=== PATIENT | female | born 1955 | race Caucasian/White ===

== ENCOUNTER 2018-09-30 16:33 | Inpatient (IN) | payer OTHER ==
[~2018-09-30] VITALS: Ht 167.6 cm; Wt 48.3 kg
[2018-09-30 17:55] LABS: BASOPHILS ABSOLUTE AUTO 0.11 K/mm3 (0.00-0.23); BASOPHILS PERCENT AUTO 1 % (0-2); Hematocrit 42.9 % (33.0-51.0); Hemoglobin 13.9 g/dL (11.5-16.0); LYMPHOCYTES ABSOLUTE AUTO 1.11 K/mm3 (0.84-5.20); LYMPHOCYTES PERCENT AUTO 7 % (21-46); MONOCYTES PERCENT AUTO 9 % (4-13); Mean Corpuscular HGB 31.7 pg (26.0-34.0); Mean Corpuscular HGB Conc 32.4 g/dL (31.5-36.5); Mean Corpuscular Volume 98 fL (80-100); Mean Platelet Volume 10.1 fL (9.1-12.4); Platelet Count 236 K/mm3 (150-400); RDW Coefficient Variation 12.5 % (11.7-14.2); RDW Standard Deviation 44.8 fL (35.1-46.3); Red Blood Cell Count 4.38 M/mm3 (3.80-5.20); White Blood Cell Count 15.32 K/mm3 (4.00-11.30)
[2018-09-30 17:58] LABS: EOSINOPHILS PERCENT AUTO 0 % (0-6); IMMATURE GRAN ABSOLUTE AUTO 0.14 K/mm3 (0.00-0.10); IMMATURE GRAN PERCENT AUTO 1 % (0-1); NEUTROPHILS ABSOLUTE AUTO 12.66 K/mm3 (1.96-9.15); NEUTROPHILS PERCENT AUTO 83 % (41-73)
[2018-09-30 18:05] LABS: Alanine Aminotransfer (ALT/SGP 39 U/L (12-78); Albumin, Blood 3.3 g/dL (3.4-5.0); Albumin/Globulin Ratio 0.8 (0.8-1.8); Alk Phos 93 U/L (50-136); Anion Gap 12 mmol/L (6-16); Aspartate Aminotrans (AST/SGOT 42 U/L (12-37); Bilirubin, Total 1.1 mg/dL (0.1-1.0); Blood Urea Nitrogen 24 mg/dL (8-24); Bun/Creatinine Ratio 34.7 (12.0-20.0); CO2, Blood 22 mmol/L (21-32); Calcium, Blood 8.2 mg/dL (8.5-10.1); Chloride, Blood 97 mmol/L (98-108); Creatinine, Blood 0.69 mg/dL (0.40-1.00); Globulin, Blood 3.9 g/dL (2.2-4.0); Glomerular Filtration Rate >60 (60-); Glucose, Blood 98 mg/dL (70-99); Sodium, Blood 131 mmol/L (136-145); Total Protein, Blood 7.2 g/dL (6.4-8.2)
[2018-09-30 20:14] LABS: Source, Urine Clean Catch
[2018-09-30 20:22] LABS: Appearance, Urine Clear (Clear); Bilirubin, Urine Neg (Neg); Blood, Urine 2+ (Neg); Color, Urine Yellow (P-Yellow); Glucose Qualitative, Urine Neg (Neg); Ketones, Urine 3+ (Neg); Leukocyte Esterase, Urine Neg (Neg); Nitrite, Urine Neg (Neg); Protein, Urine 2+ (Neg); Urobilinogen, Urine NORM (Normal)
[2018-09-30 20:37] LABS: White Blood Cells, Urine Rare /hpf (0-5)
[2018-09-30 20:39] LABS: Amorphous Light (0-Heavy); Bacteria Few /hpf; Red Blood Cells, Urine 0-2 /hpf (0-2); Squamous Epithelial Cells Rare /hpf (Few)
[2018-09-30 21:48] LABS: U Amphetamine Screen Not Detected; U Barbituate Screen Not Detected; U Benzodiazapine Screen Not Detected; U Buprenorphine Screen Not Detected; U Cannabinoids Screen Not Detected; U Cocaine Screen Not Detected; U Methadone Screen Not Detected; U Methamphetamine Screen Not Detected; U Opiates Screen Not Detected; U Oxycodone Screen Not Detected; U Phencyclidine Screen Not Detected; U Propoxyphene Screen Not Detected
[2018-10-01 00:53] LABS: Adenovirus Not Detected (NOT DETECT); Bordetella pertussis Not Detected (NOT DETECT); Chlamydophila pneumoniae Not Detected (NOT DETECT); Coronavirus 229E Not Detected (NOT DETECT); Coronavirus HKU1 Not Detected (NOT DETECT); Coronavirus NL63 Not Detected (NOT DETECT); Coronavirus OC43 Not Detected (NOT DETECT); Human Metapneumovirus Not Detected (NOT DETECT); Human Rhinovirus/Enterovirus Not Detected (NOT DETECT); Influenza A Not Detected (NOT DETECT); Influenza A/2009-H1 Not Detected (NOT DETECT); Influenza A/H1 Not Detected (NOT DETECT); Influenza A/H3 Not Detected (NOT DETECT); Influenza B Not Detected (NOT DETECT); Mycoplasma pneumoniae Not Detected (NOT DETECT); Parainfluenza Virus 1 Not Detected (NOT DETECT); Parainfluenza Virus 2 Not Detected (NOT DETECT); Parainfluenza Virus 3 Not Detected (NOT DETECT); Parainfluenza Virus 4 Not Detected (NOT DETECT); Respiratory Syncytial Virus Not Detected (NOT DETECT)
[2018-10-01 04:52] LABS: Hematocrit 39.6 % (33.0-51.0); Hemoglobin 12.9 g/dL (11.5-16.0); Mean Corpuscular HGB 31.3 pg (26.0-34.0); Mean Corpuscular HGB Conc 32.6 g/dL (31.5-36.5); Mean Corpuscular Volume 96 fL (80-100); Mean Platelet Volume 10.6 fL (9.1-12.4); Platelet Count 229 K/mm3 (150-400); RDW Coefficient Variation 12.8 % (11.7-14.2); RDW Standard Deviation 45.6 fL (35.1-46.3); Red Blood Cell Count 4.12 M/mm3 (3.80-5.20); White Blood Cell Count 12.51 K/mm3 (4.00-11.30)
[2018-10-01 05:18] LABS: BAND PERCENT MAN 36 % (0-8); BASOPHILS PERCENT MAN 0 % (0-2); EOSINOPHILS PERCENT MAN 0 % (0-6); LYMPHOCYTES ABSOLUTE MAN 0.62 K/mm3 (0.84-5.20); LYMPHOCYTES PERCENT MAN 5 % (21-46); METAMYELOCYTE ABSOLUTE MAN 0.25 K/mm3 (0.00-0.00); METAMYELOCYTE PERCENT MAN 2 % (0-0); MONOCYTES PERCENT MAN 8 % (4-13); MYELOCYTE PERCENT MAN 4 % (0-0); NEUTROPHILS ABSOLUTE MAN 10.13 K/mm3 (1.96-9.15); SEG NEUTROPHILS PERCENT MAN 45 % (41-73); TOTAL CELLS COUNTED 100
[2018-10-01 05:20] LABS: Anion Gap 10 mmol/L (6-16); Blood Urea Nitrogen 21 mg/dL (8-24); Bun/Creatinine Ratio 25.8 (12.0-20.0); CO2, Blood 25 mmol/L (21-32); Chloride, Blood 101 mmol/L (98-108); Creatinine, Blood 0.81 mg/dL (0.40-1.00); Glomerular Filtration Rate >60 (60-); Glucose, Blood 113 mg/dL (70-99); Potassium, Blood 3.8 mmol/L (3.5-5.5); Sodium, Blood 136 mmol/L (136-145)
--- NOTE | 2018-10-01 05:25 | NUR ---
SHIFT SUMMARY PT ADMITTED WITH PNEUMONIA. ALERT AND ORIENTED, BUT DROWSY. IVF'S INFUSING AT 75ML/HR. PT RECEIVED TYLENOL IN ER DUE TO FEVER, PT AFEBRILE UPON ARRIVAL TO UNIT. TELEMETRY SHOWS NSR RATE IN THE 80'S. PT HAS MOIST SOUNDING COUGH, LUNG SOUNDS COARSE T/O. OXYGEN ON AT 2L/NC. WILL CONTINUE TO MONITOR.
--- NOTE | 2018-10-01 18:15 | NUR ---
PT AOX4 AND COOPERATIVE OF CARE. PT TREATED FOR COUGH AND PAIN PER EMAR. THIS SEEMS TO BE EFFECTIVE AT THIS TIME. PT KEEPS BED UPRIGHT TO HELP WITH HER SOB. PT PLEASANT AND CALLS APPROPRIATELY. WILL CONTINUE TO MONITOR.
--- NOTE | 2018-10-02 07:10 | NUR ---
coughing led to pain in side, resolved with time and tylenol, call light in reach, infusing NS with no s/sx of infection or infiltration, 2L via nc, a+o cooperative with staff, walking rounds completed with returning day staff
[2018-10-02 08:23] LABS: Hematocrit 37.2 % (33.0-51.0); Hemoglobin 11.9 g/dL (11.5-16.0); Mean Corpuscular HGB 30.7 pg (26.0-34.0); Mean Corpuscular Volume 96 fL (80-100); Mean Platelet Volume 10.5 fL (9.1-12.4); Platelet Count 259 K/mm3 (150-400); RDW Standard Deviation 46.2 fL (35.1-46.3); Red Blood Cell Count 3.87 M/mm3 (3.80-5.20); White Blood Cell Count 14.01 K/mm3 (4.00-11.30)
[2018-10-02 08:47] LABS: Anion Gap 6 mmol/L (6-16); Blood Urea Nitrogen 17 mg/dL (8-24); Bun/Creatinine Ratio 26.9 (12.0-20.0); CO2, Blood 24 mmol/L (21-32); Chloride, Blood 111 mmol/L (98-108); Creatinine, Blood 0.63 mg/dL (0.40-1.00); Glomerular Filtration Rate >60 (60-); Glucose, Blood 93 mg/dL (70-99); Potassium, Blood 3.5 mmol/L (3.5-5.5); Sodium, Blood 141 mmol/L (136-145)
[2018-10-02 08:49] LABS: Vancomycin, Trough 6.9 ug/mL (5.0-10.0)
[2018-10-02 09:39] LABS: BAND PERCENT MAN 1 % (0-8); BASOPHILS ABSOLUTE MAN 0.14 K/mm3 (0.00-0.23); BASOPHILS PERCENT MAN 1 % (0-2); EOSINOPHILS ABSOLUTE MAN 0.14 K/mm3 (0.00-0.68); EOSINOPHILS PERCENT MAN 1 % (0-6); LYMPHOCYTES ABSOLUTE MAN 1.26 K/mm3 (0.84-5.20); LYMPHOCYTES PERCENT MAN 9 % (21-46); MONOCYTES PERCENT MAN 0 % (4-13); NEUTROPHILS ABSOLUTE MAN 12.46 K/mm3 (1.96-9.15); SEG NEUTROPHILS PERCENT MAN 88 % (41-73); TOTAL CELLS COUNTED 100
--- NOTE | 2018-10-02 17:34 | NUR ---
PT AOX4 AND COOPERATIVE OF ALL CARE. PT STILL VERY SLEEPY AND TIRED, BUT WAS MUCH MORE ALERT TODAY AND TALKATIVE. PT WAS UP IN A RECLINER FOR MEALS. PT'S LS ARE WHEEZY THROUGHT. PT WAS ABLE TO GET A SPUTUM SAMPLE COUGHED UP SHE HAS BEEN COUGHING UP MORE MUCOUS. PT IS A ONE PERSON STANDBY TO RESTROOM WITH CONTINUE TO MONITOR.
[2018-10-03 05:20] LABS: BASOPHILS ABSOLUTE AUTO 0.06 K/mm3 (0.00-0.23); BASOPHILS PERCENT AUTO 0 % (0-2); EOSINOPHILS ABSOLUTE AUTO 0.01 K/mm3 (0.00-0.68); EOSINOPHILS PERCENT AUTO 0 % (0-6); Hematocrit 37.7 % (33.0-51.0); Hemoglobin 12.2 g/dL (11.5-16.0); IMMATURE GRAN ABSOLUTE AUTO 0.14 K/mm3 (0.00-0.10); IMMATURE GRAN PERCENT AUTO 1 % (0-1); LYMPHOCYTES ABSOLUTE AUTO 1.01 K/mm3 (0.84-5.20); LYMPHOCYTES PERCENT AUTO 7 % (21-46); MONOCYTES ABSOLUTE AUTO 1.07 K/mm3 (0.16-1.47); MONOCYTES PERCENT AUTO 7 % (4-13); Mean Corpuscular HGB 31.4 pg (26.0-34.0); Mean Corpuscular HGB Conc 32.4 g/dL (31.5-36.5); Mean Corpuscular Volume 97 fL (80-100); Mean Platelet Volume 10.8 fL (9.1-12.4); NEUTROPHILS ABSOLUTE AUTO 13.13 K/mm3 (1.96-9.15); NEUTROPHILS PERCENT AUTO 85 % (41-73); Platelet Count 305 K/mm3 (150-400); RDW Coefficient Variation 12.7 % (11.7-14.2); RDW Standard Deviation 45.2 fL (35.1-46.3); Red Blood Cell Count 3.88 M/mm3 (3.80-5.20); White Blood Cell Count 15.42 K/mm3 (4.00-11.30)
[2018-10-03 05:50] LABS: Anion Gap 9 mmol/L (6-16); Blood Urea Nitrogen 15 mg/dL (8-24); Bun/Creatinine Ratio 27.2 (12.0-20.0); CO2, Blood 24 mmol/L (21-32); Calcium, Blood 8.1 mg/dL (8.5-10.1); Chloride, Blood 107 mmol/L (98-108); Creatinine, Blood 0.55 mg/dL (0.40-1.00); Glomerular Filtration Rate >60 (60-); Glucose, Blood 107 mg/dL (70-99); Potassium, Blood 3.5 mmol/L (3.5-5.5); Sodium, Blood 140 mmol/L (136-145)
--- NOTE | 2018-10-03 07:26 | NUR ---
a+o call light in reach, non productive cough, saline locked, 2L via nc, walking rounds completed with day staff
--- NOTE | 2018-10-03 19:28 | NUR ---
SHIFT SUMMARY PT INDEPENDENT TO BATHROOM. COUGHING FREQUENTLY WITH TROUBLE GETTING SPUTUM UP. AFTER SHOWER REQUESTING TYLENOL FOR L SIDE PAIN FROM THE COUGHING. MEDICATED FOR COUGH AND PAIN. RESTING AFTER SHOWER AND APPEARS MORE COMFORTABLE SINCE MEDICATED. SOB WITH EXERTION AND COUGHING.
[2018-10-03 21:24] LABS: Vancomycin, Trough 9.6 ug/mL (5.0-10.0)
[2018-10-04 04:37] LABS: BASOPHILS ABSOLUTE AUTO 0.07 K/mm3 (0.00-0.23); BASOPHILS PERCENT AUTO 1 % (0-2); EOSINOPHILS ABSOLUTE AUTO 0.02 K/mm3 (0.00-0.68); EOSINOPHILS PERCENT AUTO 0 % (0-6); Hematocrit 36.1 % (33.0-51.0); Hemoglobin 11.9 g/dL (11.5-16.0); IMMATURE GRAN ABSOLUTE AUTO 0.14 K/mm3 (0.00-0.10); IMMATURE GRAN PERCENT AUTO 1 % (0-1); LYMPHOCYTES ABSOLUTE AUTO 1.01 K/mm3 (0.84-5.20); LYMPHOCYTES PERCENT AUTO 8 % (21-46); MONOCYTES ABSOLUTE AUTO 1.25 K/mm3 (0.16-1.47); MONOCYTES PERCENT AUTO 10 % (4-13); Mean Corpuscular HGB 30.9 pg (26.0-34.0); Mean Corpuscular Volume 94 fL (80-100); Mean Platelet Volume 9.8 fL (9.1-12.4); NEUTROPHILS ABSOLUTE AUTO 10.15 K/mm3 (1.96-9.15); NEUTROPHILS PERCENT AUTO 80 % (41-73); Platelet Count 331 K/mm3 (150-400); RDW Coefficient Variation 12.6 % (11.7-14.2); RDW Standard Deviation 43.6 fL (35.1-46.3); Red Blood Cell Count 3.85 M/mm3 (3.80-5.20); White Blood Cell Count 12.64 K/mm3 (4.00-11.30)
[2018-10-04 04:51] LABS: Anion Gap 6 mmol/L (6-16); Blood Urea Nitrogen 12 mg/dL (8-24); Bun/Creatinine Ratio 28.2 (12.0-20.0); CO2, Blood 26 mmol/L (21-32); Chloride, Blood 106 mmol/L (98-108); Creatinine, Blood 0.43 mg/dL (0.40-1.00); Glomerular Filtration Rate >60 (60-); Glucose, Blood 119 mg/dL (70-99); Potassium, Blood 3.7 mmol/L (3.5-5.5); Sodium, Blood 138 mmol/L (136-145)
--- NOTE | 2018-10-04 06:21 | NUR ---
SHIFT SUMMARY: PT IS A&O, INDEPENDENT IN RM. VSS. ON 2L VIA NC; LS COARSE. HACKING, PRODUCTIVE COUGH; POOR COUGH EFFORT; UNABLE TO EXPEL PHLEGM. ADMINISTERED PRN ROBITUSSIN/CODEINE + TESSALON PEARLS 1X WHICH OFFERED 2 HRS OF RELIEF. PT REPORTS PAIN IN L RIBS FROM COUGHING; ADMINISTERED 650 MG TYLNEOL 1X. NO OTHER CHANGES TO REPORT. WILL CONT TO MONITOR AND PROVIDE CARE UNTIL PRESUMED BY ONCOMING RN.
--- NOTE | 2018-10-04 13:26 | NUR ---
Initial palliative care consult: Sharon is a 62 year old who is admitted with bilateral pneumonia. She states she has had pneumonia once before that did not require a hospital stay. She has a history of a PE. 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 She reports that she has been feeling poorly for the past two weeks. She lives alone. Sharon is normally a very active person and she states that being weak and in bed is not normal for her. She c/o feeling "wiped out" just from ambulating to the bathroom and back. She is SOB with exertion. She speaks in full sentences, however she does get SOB with talking. She has a productive cough to brown colored sputum. She c/o chest and stomach discomfort with coughing. She denies any vision, hearing or balance changes. She c/o being weak and tired. She reports she has recently lost some weight, she is unsure how much. Her PCP did some bloodwork and per pt nothing was abnomral. She reports that her mother and sister are both petite, both weighing around 92-93 pounds. Encouraged fluid intake and small frequent meals and snacks. Encouraged ensure/protein shakes. Encouraged periods of rest after periods of activity. Pt appears to be fatigued during our conversation. She states that she doesn't have an AD or POLST. She would like to think about AD. She reports that she helped her mother fill out her mother's AD form in the past. PC visit kept short as pt appeared very fatigued and has SOB with talking. PC to continue to follow for symptom management and assistance with AD when pt is able .
--- NOTE | 2018-10-04 18:22 | NUR ---
SHIFT SUMMARY PT INDEPENDENT IN ROOM. SOB WITH EXERTION. REPORTS SHE IS COUGHING MORE UP NOW BUT IT REMAINS TENACIOUS AND SHE DEVELOPS CHEST PAIN WITH COUGHING EPISODE. MEDICATED ONCE THIS AFTERNOON WITH HELP.
[2018-10-04 21:32] LABS: Vancomycin, Trough 10.3 ug/mL (5.0-10.0)
--- NOTE | 2018-10-05 06:21 | NUR ---
SHIFT SUMMARY: NO ACUTE CHANGES THIS SHIFT. PT CONTINUES TO HAVE HARSH COUGH, THICK GUERRERO SPUTUM. COUGH EFFORT IMPROVING AND PT IS ABLE TO SPIT CONTENTS UP. PT REFUSED PRN COUGH MEDICINE. MEDICTED 1X FOR RIB PAIN FROM COUGHING WITH TYLNEOL. WILL CONT TO MONITOR AND PROVIDE CARE
[2018-10-05 13:51] LABS: Vancomycin, Trough 15.8 ug/mL (5.0-10.0)
--- NOTE | 2018-10-05 19:21 | NUR ---
SHIFT SUMMARY. A&OX4, INDEPENDENT IN ROOM. DENIES PAIN, SOB, N/V. CONTINUES WITH 2L O2 NC. HOME O2 EVAL ORDERED FOR TOMORROW. NEW IV STARTED THIS AFTERNOON. NO NEW CHANGES.
--- NOTE | 2018-10-06 04:56 | NUR ---
NOC SHIFT SUMMARY PT HAS BEEN PLEASANT AND COOPERATIVE WITH CARE THIS NIGHT. SHE HAS CONTINUED TO HAVE PRODUCTIVE COUGH. RESP HAVE BEEN EVEN AND UNLABORED AND PT WENT TO SLEEP EARLY IN THE NIGHT. SHE REMAINS AAOX4. NO SIGNIFICANT CHANGES THIS SHIFT. WILL CONTINUE TO MONITOR.
[2018-10-06] MEDS ORDERED: BENZ100A PO (11:14)
[2018-10-06] MEDS ORDERED: CLOT10 SS (11:15)
[2018-10-06] MEDS ORDERED: GUAIFENESIN ER600 MG PO (11:17)
[2018-10-06] MEDS ORDERED: Acidophilus La100 GM PO (11:18)
[2018-10-06] MEDS ORDERED: DOXY100 PO (11:18)
--- NOTE | 2018-10-06 12:58 | NUR ---
1215 PT DISHCARGED HOME VIA PERSONAL VEHICLE ACCOMPANIED AND DRIVEN BY SISTER. PT ESCORTED TO ENTRANCE VIA W/C BY GAS WORKER. IV REMOVED. D/C PAPERWORK REVIEWED WITH PT AND COPY PROVIDED. NEW RX FAXED TO [facility] PER PT REQUEST. PT DID NOT QUALIFY FOR HOME O2 AFTER HOME O2 EVAL COMPLETED. NO OTHER CHANGES.
== END 2018-10-06 12:19 | disposition home or self-care (01) | DRG 871 ==
LOC: ER 16:33 → ERHOLD 19:48 → MEDS 19:48 → ENPENDDIS 10-06 10:34 → MEDS 10-06 12:19
PROVIDERS: Internal Medicine; Nurse Practitioner Acute Care; Physician Assistant; ADMIT Internal Medicine
DX: A41.9 Sepsis, unspecified organism (principal); J96.01 Acute respiratory failure with hypoxia; J15.212 Pneumonia due to Methicillin resistant Staphylococcus aureus; B37.0 Candidal stomatitis; E87.1 Hypo-osmolality and hyponatremia; R65.20 Severe sepsis without septic shock; Z87.891 Personal history of nicotine dependence; E86.0 Dehydration
CPT/HCPCS: 36415; 71046; 80048; 80053; 80202; 81001; 83605; 84145; 85025; 87040; 87449; 87486; 87581; 87633; 87798; 93005; 93010; 94762; 96365; 96372-59; 96375; 99285-25; J0692; J0696; J1650; J2543; J3370; J7030; J7050; P9612

== ENCOUNTER 2019-08-23 20:39 | Emergency (ER) | payer OTHER ==
[~2019-08-23] VITALS: Ht 165.1 cm; Wt 49.9 kg
[~2019-08-23 20:39] MED LIST: Acidophilus La100 GM PO; BENZ100A PO; CLOT10 SS; DOXY100 PO; GUAIFENESIN ER600 MG PO
== END 2019-08-23 21:45 | disposition home or self-care (01) ==
LOC: ER 20:39
DX: I83.892 Varicose veins of left lower extremity with other complications (principal); Z79.899 Other long term (current) drug therapy; Z87.891 Personal history of nicotine dependence
CPT/HCPCS: 99282

== ENCOUNTER 2020-08-28 07:04 | Day surgery (SDC) | payer OTHER ==
[~2020-08-28] VITALS: Ht 160 cm; Wt 49.2 kg
--- NOTE | 2020-08-28 07:45 | NUR ---
Ambulatory in Day Surgery. History, Chart, Medications and Allergies reviewed before start of procedure. Lungs clear T/O to Auscultation. Pre-Op teaching done. Pt verbalizes understanding.
--- NOTE | 2020-08-28 11:37 | NUR ---
PT C/O ABD "ACHY" - DRESSING D&I. ICE PACK APPLIED. PT DRINKING SMALL AMOUNTS OF APPLE JUICE AND EATING SALTINE CRACKERS. REPORTS TO BOB KRAUS TO ASSUME CARE OF PATIENT.
--- NOTE | 2020-08-28 12:13 | NUR ---
Discharge instructions reviewed with patient. Patient verbalizes understanding. Copy given to patient to take home. Patient States Post-Procedure ride home has been arranged. Discharged via wheelchair to private car for ride home.
== END 2020-08-28 23:55 | disposition home or self-care (01) ==
LOC: ORSCMMR 07:04
PROVIDERS: Surgery
PROC: 8E0W4CZ Robotic Assisted Procedure of Trunk Region, Percutaneous Endoscopic Approach (ICD-10-PCS; principal; 2020-08-28 08:30)
PROC: 0YUE4JZ Supplement Bilateral Femoral Region with Synthetic Substitute, Percutaneous Endoscopic Approach (ICD-10-PCS; principal; 2020-08-28 08:30)
DX: K41.20 Bilateral femoral hernia, without obstruction or gangrene, not specified as recurrent (principal); Z87.891 Personal history of nicotine dependence
CPT/HCPCS: 49659; S2900; 87070; 87081; 87147; A9270; C1781; J0360; J0690; J1100; J1885; J2250; J2310; J2405; J2704; J2710; J3010; J7120

== ENCOUNTER 2021-03-18 06:50 | Day surgery (SDC) | payer OTHER ==
[~2021-03-18] VITALS: Ht 165.1 cm; Wt 48.1 kg
--- NOTE | 2021-03-18 07:39 | NUR ---
Ambulatory in Day Surgery History, Chart, Medications and Allergies reviewed before start of procedure.Patient confirms NPO status and agrees with scheduled surgery. Patient states colon prep results YELLOW, SEE THROUGH WITH SEDIMENT DESPITE NOT FINISHING ALL OF BOWEL PREP. Patient States Post-Procedure ride home has been arranged BUT FORGOT PHONE NUMBER. CHOCOLATE TEMPERER ATTEMPTNG TO FIND A PHONE NUMBER
--- NOTE | 2021-03-18 08:28 | NUR ---
03/18/21 0828 Britni Valdez History, Chart, Medications and Allergies reviewed before start of procedure.PATIENT DETERMINED TO BE ASA APPROPRIATE FOR PROPOFOL SEDATION PRIOR TO START OF PROCEDURE BY .MONITOR INTACT WITH CONTINUOUS PULSE OXIMETRY AND INTERMITTENT BP.3-LEAD EKG REVIEWED WITH PHYSICIAN PRIOR TO START OF PROCEDURE.
--- NOTE | 2021-03-18 08:47 | NUR ---
INTO STEP WITH RN RECIEVED REPORT VSS
--- NOTE | 2021-03-18 09:44 | NUR ---
Discharge instructions reviewed with patient. Patient verbalizes understanding. Copy given to patient to take home. Discharged via wheelchair to private car for ride home.
== END 2021-03-18 09:58 | disposition home or self-care (01) ==
LOC: ORSCMMR 06:50 → ORD 08:00 → ORSCMMR 08:00
PROVIDERS: Internal Medicine Gastroenterology
PROC: 0DJD8ZZ Inspection of Lower Intestinal Tract, Via Natural or Artificial Opening Endoscopic (ICD-10-PCS; principal; 2021-03-18 08:00)
DX: Z12.11 Encounter for screening for malignant neoplasm of colon (principal); K64.8 Other hemorrhoids; Z87.891 Personal history of nicotine dependence
CPT/HCPCS: J2704; J7120

== ENCOUNTER → 2022-12-19 | Outpatient (CLI) | payer OTHER ==
[2022-12-19 08:29] LABS: BASOPHILS ABSOLUTE AUTO 0.05 K/mm3 (0.00-0.23); BASOPHILS PERCENT AUTO 1 % (0-2); EOSINOPHILS ABSOLUTE AUTO 0.07 K/mm3 (0.00-0.68); EOSINOPHILS PERCENT AUTO 1 % (0-6); Hematocrit 42.1 % (33.0-51.0); Hemoglobin 14.4 g/dL (11.5-16.0); IMMATURE GRAN ABSOLUTE AUTO 0.01 K/mm3 (0.00-0.10); IMMATURE GRAN PERCENT AUTO 0 % (0-1); LYMPHOCYTES PERCENT AUTO 31 % (21-46); MONOCYTES ABSOLUTE AUTO 0.47 K/mm3 (0.16-1.47); MONOCYTES PERCENT AUTO 8 % (4-13); Mean Corpuscular HGB 32.4 pg (26.0-34.0); Mean Corpuscular HGB Conc 34.2 g/dL (31.5-36.5); Mean Corpuscular Volume 95 fL (80-100); Mean Platelet Volume 9.9 fL (9.1-12.4); NEUTROPHILS ABSOLUTE AUTO 3.67 K/mm3 (1.96-9.15); NEUTROPHILS PERCENT AUTO 60 % (41-73); Platelet Count 273 K/mm3 (150-400); RDW Coefficient Variation 12.9 % (11.7-14.2); Red Blood Cell Count 4.44 M/mm3 (3.80-5.20); White Blood Cell Count 6.17 K/mm3 (4.00-11.30)
[2022-12-19 08:41] LABS: Albumin, Blood 3.9 g/dL (3.4-5.0); Albumin/Globulin Ratio 1.2 (0.8-1.8); Bilirubin, Total 0.3 mg/dL (0.1-1.0); Bun/Creatinine Ratio 23.9 (12.0-20.0); Calcium, Blood 9.3 mg/dL (8.5-10.1); Creatinine, Blood 0.67 mg/dL (0.40-1.00); Globulin, Blood 3.2 g/dL (2.2-4.0); Potassium, Blood 4.6 mmol/L (3.5-5.5); Total Protein, Blood 7.1 g/dL (6.4-8.2)
== END | disposition home or self-care (01) ==
LOC: LAB SHORT 08:24 → LAB 08:24
PROVIDERS: Physician Assistant
DX: R10.9 Unspecified abdominal pain (principal)
CPT/HCPCS: 80053; 82150; 83690; 85025

== ENCOUNTER 2023-05-26 02:45 | Emergency (ER) | payer OTHER ==
[~2023-05-26] VITALS: Ht 162.6 cm; Wt 49.9 kg
[2023-05-26 05:13] LABS: BASOPHILS ABSOLUTE AUTO 0.08 K/mm3 (0.00-0.23); BASOPHILS PERCENT AUTO 1 % (0-2); EOSINOPHILS ABSOLUTE AUTO 0.08 K/mm3 (0.00-0.68); EOSINOPHILS PERCENT AUTO 1 % (0-6); Hemoglobin 15.2 g/dL (11.5-16.0); IMMATURE GRAN ABSOLUTE AUTO 0.02 K/mm3 (0.00-0.10); IMMATURE GRAN PERCENT AUTO 0 % (0-1); LYMPHOCYTES ABSOLUTE AUTO 1.67 K/mm3 (0.84-5.20); LYMPHOCYTES PERCENT AUTO 20 % (21-46); MONOCYTES ABSOLUTE AUTO 0.57 K/mm3 (0.16-1.47); MONOCYTES PERCENT AUTO 7 % (4-13); Mean Corpuscular HGB Conc 33.8 g/dL (31.5-36.5); Mean Corpuscular Volume 95 fL (80-100); Mean Platelet Volume 10.2 fL (9.1-12.4); NEUTROPHILS ABSOLUTE AUTO 6.11 K/mm3 (1.96-9.15); NEUTROPHILS PERCENT AUTO 72 % (41-73); Platelet Count 265 K/mm3 (150-400); RDW Standard Deviation 42.6 fL (35.1-46.3); Red Blood Cell Count 4.75 M/mm3 (3.80-5.20); White Blood Cell Count 8.53 K/mm3 (4.00-11.30)
[2023-05-26 05:43] LABS: Bun/Creatinine Ratio 19.9 (12.0-20.0); Calcium, Blood 8.8 mg/dL (8.5-10.1); Creatinine, Blood 0.71 mg/dL (0.40-1.00); Potassium, Blood 4.2 mmol/L (3.5-5.5); Thyroid Stimulating Hormone 1.21 uIU/mL (0.360-4.800)
[2023-05-26 07:24] VITALS: BP 178/84
== END 2023-05-26 07:24 | disposition home or self-care (01) ==
LOC: ER 02:45
PROVIDERS: Emergency Medicine
DX: H93.A1 Pulsatile tinnitus, right ear (principal)
CPT/HCPCS: 70496; 71046; 80048; 84443; 84484; 85025; 93005; 93010; 99284-25; Q9967

== ENCOUNTER 2023-06-21 03:32 | Emergency (ER) | payer OTHER ==
[~2023-06-21] VITALS: Ht 165.1 cm; Wt 49.9 kg
[2023-06-21 04:33] LABS: BASOPHILS ABSOLUTE AUTO 0.03 K/mm3 (0.00-0.23); BASOPHILS PERCENT AUTO 1 % (0-2); EOSINOPHILS ABSOLUTE AUTO 0.14 K/mm3 (0.00-0.68); EOSINOPHILS PERCENT AUTO 3 % (0-6); Hematocrit 41.9 % (33.0-51.0); Hemoglobin 13.9 g/dL (11.5-16.0); IMMATURE GRAN ABSOLUTE AUTO 0.01 K/mm3 (0.00-0.10); IMMATURE GRAN PERCENT AUTO 0 % (0-1); LYMPHOCYTES ABSOLUTE AUTO 1.63 K/mm3 (0.84-5.20); LYMPHOCYTES PERCENT AUTO 31 % (21-46); MONOCYTES PERCENT AUTO 10 % (4-13); Mean Corpuscular HGB 31.4 pg (26.0-34.0); Mean Corpuscular HGB Conc 33.2 g/dL (31.5-36.5); Mean Corpuscular Volume 95 fL (80-100); NEUTROPHILS ABSOLUTE AUTO 2.88 K/mm3 (1.96-9.15); NEUTROPHILS PERCENT AUTO 56 % (41-73); Platelet Count 260 K/mm3 (150-400); RDW Coefficient Variation 12.3 % (11.7-14.2); RDW Standard Deviation 43.2 fL (35.1-46.3); Red Blood Cell Count 4.43 M/mm3 (3.80-5.20); White Blood Cell Count 5.19 K/mm3 (4.00-11.30)
[2023-06-21] MEDS ORDERED: LISI5 PO (04:35)
[2023-06-21 05:10] LABS: Albumin, Blood 3.8 g/dL (3.4-5.0); Albumin/Globulin Ratio 1.1 (0.8-1.8); Bilirubin, Total 0.5 mg/dL (0.1-1.0); Bun/Creatinine Ratio 27.1 (12.0-20.0); Calcium, Blood 8.8 mg/dL (8.5-10.1); Creatinine, Blood 0.63 mg/dL (0.40-1.00); Globulin, Blood 3.4 g/dL (2.2-4.0); Magnesium, Blood 2.3 mg/dL (1.6-2.4); Phosphorus, Blood 3.3 mg/dL (2.5-4.9); Potassium, Blood 4.3 mmol/L (3.5-5.5); Total Protein, Blood 7.2 g/dL (6.4-8.2)
[2023-06-21] MEDS ORDERED: Atarax10 MG PO (05:41)
[2023-06-21 06:30] VITALS: BP 140/77
== END 2023-06-21 06:59 | disposition home or self-care (01) ==
LOC: ER 03:32
PROVIDERS: Emergency Medicine
DX: R20.2 Paresthesia of skin (principal); Z87.891 Personal history of nicotine dependence
CPT/HCPCS: 80053; 83735; 84100; 84484; 85025; 93005; 93010; 99285-25